=== PATIENT | female | born 1970 | race Caucasian/White ===

== ENCOUNTER 2018-04-20 14:17 | Emergency (ER) | payer OTHER ==
[2018-04-20 14:21] VITALS: BP 138/84; PULSE 118; TEMP 98.8; BMI 24.3
--- NOTE | 2018-04-20 14:22 | PDOC ---
Rapid Medical Evaluation Time Seen by Provider: 04/20/18 14:19 Medical Evaluation: Allergies Allergy/AdvReac Type Severity Reaction Status Date / Time No Known Allergies Allergy Verified 03/02/16 18:22 04/20/18 14:19 I have performed a brief in-person evaluation of this patient. The patient presents with a chief complaint of: dry non productive cough x1 week. Pertinent physical exam findings: OP-erythematous without lesions or exudate. Lungs CTAB. I have ordered the following: tylenol The patient will proceed to the ED for further evaluation. Discharge Disposition - Diagnosis Cough - Referrals - Patient Instructions - Post Discharge Activity
[2018-04-20] MEDS ORDERED: ACETAMINOPHEN 500 MG TABLET (FP) PO ONE (14:23)
[2018-04-20] MEDS ORDERED: predniSONE 20 MG TABLET (UD) PO ONE (15:01)
[2018-04-20] MEDS ORDERED: predniSONE 20 MG TABLET (UD) ONE (15:03)
[2018-04-20] MEDS ORDERED: ALBUTEROL SO4 2.5/IPRATROPIUM 0.5 INH SOL 3 ML VIAL.NEB. NEB ONE (15:03)
[2018-04-20] MEDS: ALBUTEROL SO4 2.5/IPRATROPIUM 0.5 INH SOL 3 ML VIAL.NEB. NEB SCH ×2 (15:05→15:39)
--- NOTE | 2018-04-20 15:10 | PDOC ---
History of Present Illness - General Chief Complaint: Cold Symptoms Stated Complaint: COUGH Time Seen by Provider: 04/20/18 14:19 History Source: Patient Exam Limitations: No Limitations - History of Present Illness Initial Comments: 04/20/18 15:06 Patient came for evaluation of worsening cough, pleuritic chest pain, and no relief with any [id number] medications. Denies fever, denies phlegm production, states has some mild sore throat pain him coughing so much. Timing/Duration: reports: getting worse, week Severity: reports: moderate Modifying Factors: improves with: coughing Associated Symptoms: reports: chest pain/soreness, cough, fever/chills, nasal congestion, nasal drainage, sore throat Past History - Travel Traveled outside of the country in the last 30 days: No Close contact w/someone who was outside of country & ill: No - Past Medical History Allergies/Adverse Reactions: Allergies Allergy/AdvReac Type Severity Reaction Status Date / Time No Known Allergies Allergy Verified 04/20/18 14:21 Home Medications: Ambulatory Orders Ibuprofen [Motrin -] 600 mg PO TID #21 tablet 03/03/16 Acetaminophen [Tylenol] 325 mg PO ASDIR 04/20/18 Albuterol Sulfate Inhaler - [Ventolin HFA Inhaler -] 1 - 2 inh PO Q4H #1 inhaler 04/20/18 Azithromycin [Zithromax -] 250 mg PO UTDICT #6 tab 04/20/18 Fexofenadine HCl [Heather Allergy] 180 mg PO ASDIR 04/20/18 Guaifenesin [Mucinex -] 600 mg PO BID 04/20/18 Ibuprofen [Advil -] 200 mg PO QID 04/20/18 predniSONE [Deltasone -] 20 mg PO BID #8 tablet 04/20/18 Anemia: Yes Asthma: No Cancer: No Cardiac Disorders: No CVA: No COPD: No CHF: No Dementia: No Diabetes: No GI Disorders: No Disorders: No HTN: No Hypercholesterolemia: No Liver Disease: No Seizures: No Thyroid Disease: No - Surgical History Abdominal Surgery: No Appendectomy: No Cardiac Surgery: No Cholecystectomy: No Lung Surgery: No Neurologic Surgery: No Orthopedic Surgery: No - Suicide/Smoking/Psychosocial Hx Smoking History: Never smoked Have you smoked in the past 12 months: No Hx Alcohol Use: No Drug/Substance Use Hx: No Substance Use Type: None Hx Substance Use Treatment: No Review of Systems - Review of Systems Able to Perform ROS?: Yes Is the patient limited Vincentian proficient: Yes Constitutional: Yes: Symptoms Reported, See HPI, Chills, Loss of Appetite, Malaise. No: Fever HEENTM: Yes: Symptoms Reported, See HPI, Nose Congestion, Throat Pain Respiratory: Yes: Symptoms reported, See HPI, Cough, Wheezing (tightness) ABD/GI: No: Symptoms Reported : No: Symptoms Reported Integumentary: No: Symptoms Reported Neurological: Yes: Symptoms reported All Other Systems: Reviewed and Negative *Physical Exam - Vital Signs Last Vital Signs Temp Pulse Resp BP Pulse Ox 98.8 F 118 H 18 138/84 100 04/20/18 14:18 04/20/18 14:18 04/20/18 14:18 04/20/18 14:18 04/20/18 14:18 - Physical Exam General Appearance: Yes: Nourished, Appropriately Dressed, Apparent Distress, Mild Distress HEENT: positive: MODE, TMs Normal (and congested but zed), Pharynx Normal, Tonsillar Erythema, Nasal Congestion, Rhinorrhea. negative: Tonsillar Exudate Neck: positive: Lymphadenopathy (R), Lymphadenopathy (L). negative: Tender Respiratory/Chest: positive: Decreased Breath Sounds, Wheezing. negative: Lungs Clear, Normal Breath Sounds, Respiratory Distress Gastrointestinal/Abdominal: positive: Normal Bowel Sounds, Soft. negative: Tender Extremity: positive: Normal Inspection. 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 intact, Fully Oriented, Alert, Normal Mood/ Affect, Normal Response, Motor Strength 5/5 Moderate Sedation - Procedure Monitoring Vital Signs: Procedure Monitoring Vital Signs Temperature 98.8 F 04/20/18 14:18 Pulse Rate 118 H 04/20/18 14:18 Respiratory Rate 18 04/20/18 14:18 Blood Pressure 138/84 04/20/18 14:18 O2 Sat by Pulse Oximetry (%) 100 04/20/18 14:18 ED Treatment Course - Medications Given in the ED: ED Medications Discontinued Medications Generic Name Dose Route Start Last Admin Trade Name Freq PRN Reason Stop Dose Admin Acetaminophen 975 mg 04/20/18 14:23 04/20/18 14:23 Tylenol - PO 04/20/18 14:24 975 mg ONCE ONE Administration Prednisone 60 mg 04/20/18 15:01 04/20/18 15:05 Deltasone - PO 04/20/18 15:02 60 mg ONCE ONE Administration Progress Note - Progress Note Progress Note: upper respiratory infection, much improved with DuoNebs and Prednisone. WIll prescribe Zithromax to cover bacterial illness. *DC/Admit/Observation/Transfer Diagnosis at time of Disposition: Bronchitis - Discharge Dispostion Disposition: HOME Condition at time of disposition: Stable Decision to Admit order: No - Prescriptions Prescriptions: Albuterol Sulfate Inhaler - [Ventolin HFA Inhaler -] 1 - 2 inh PO Q4H #1 inhaler Azithromycin [Zithromax -] 250 mg PO UTDICT #6 tab predniSONE [Deltasone -] 20 mg PO BID #8 tablet - Referrals Referrals: Gil Maddox MD [Primary Care Provider] - - Patient Instructions Printed Discharge Instructions: DI for Acute Bronchitis Additional Instructions: Rest, drink lots of fluids: Teas, water, soups, Pedialyte Saltwater gargles Steamy showers/seem to face break up mucus Avoid contact with others until fevers and cough resolved Lots of handwashing and good hygiene Continue [id number] medications for symptomatic relief Tylenol or Motrin for fever and pain Continue albuterol nebulizers every 4-6 hours for the next 2 days then as needed for continued cough Prednisone as directed until completed azithromycin as directed Followup with private physician in one to 2 days Return to emergency department / pediatric hospital for worsened symptoms, fevers, dehydration - Post Discharge Activity Forms/Work/School Notes: Back to Work
== END 2018-04-20 16:08 | disposition home or self-care (01) ==
LOC: JERFT 14:17
PROC: 3E0F7GC Introduction of Other Therapeutic Substance into Respiratory Tract, Via Natural or Artificial Opening (ICD-10-PCS; principal; 2018-04-20)
DX: R05 Cough (principal); J40 Bronchitis, not specified as acute or chronic
CPT/HCPCS: 94640; 99281-25

== ENCOUNTER 2020-04-18 22:35 | Emergency (ER) | payer OTHER ==
[2020-04-18 22:40] VITALS: TEMP 98.5; BMI 25.6
[2020-04-18] MEDS ORDERED: ACETAMINOPHEN 1000 MG/100 ML VIAL (NON FORMULARY) IVPB ONE (23:11)
[2020-04-18] MEDS ORDERED: METOCLOPRAMIDE HCL INJECTION 10 MG/2 ML VIAL IVPUSH ONE (23:11)
[2020-04-18] MEDS ORDERED: METOCLOPRAMIDE HCL INJECTION 10 MG/2 ML VIAL ONE (23:22)
[2020-04-18] MEDS ORDERED: ACETAMINOPHEN INJECTION 100 ML IVPB ONE (23:22)
[2020-04-18 23:26] LABS: BASO % 0.5 % (0-2.0); EOS % 0.9 % (0-4.5); HEMATOCRIT 42.3 % (32.4-45.2); HEMOGLOBIN 13.7 GM/dL (10.7-15.3); LYMPH % 17.8 % (8-40); MCH 28.1 pg (25.7-33.7); MCHC 32.4 g/dl (32.0-36.0); MEAN CELL VOLUME 86.8 fl (80-96); MEAN PLT VOLUME 9.5 fl (7.5-11.1); MONO % 6.7 % (3.8-10.2); NEUT % 74.1 % (42.8-82.8); PLATELET COUNT 329 K/MM3 (134-434); RBC 4.87 M/mm3 (3.60-5.2); RDW 14.3 % (11.6-15.6); WHITE BLOOD COUNT 13.3 K/mm3 (4.0-10.0)
[2020-04-18 23:43] LABS: POTASSIUM 4.1 mmol/L (3.5-5.1)
[2020-04-18 23:44] LABS: CALCIUM 9.8 mg/dL (8.5-10.1)
[2020-04-18 23:45] LABS: ALBUMIN 4.1 g/dl (3.4-5.0); BLOOD UREA NITROGEN 9.6 mg/dL (7-18)
[2020-04-18 23:48] LABS: CREATININE 0.7 mg/dL (0.55-1.3)
[2020-04-18] MEDS ORDERED: MECLIZINE HCL 25 MG TABLET (FP) PO ONE (23:48)
[2020-04-18 23:49] LABS: BILIRUBIN,TOTAL 0.5 mg/dL (0.2-1)
[2020-04-18] MEDS ORDERED: MECLIZINE HCL 25 MG TABLET (FP) ONE (23:53)
[2020-04-19 01:14] VITALS: BP 111/69; PULSE 82
== END 2020-04-19 01:15 | disposition home or self-care (01) ==
LOC: JER 22:35
PROC: 3E033NZ Introduction of Analgesics, Hypnotics, Sedatives into Peripheral Vein, Percutaneous Approach (ICD-10-PCS; principal; 2020-04-18)
PROC: 3E033GC Introduction of Other Therapeutic Substance into Peripheral Vein, Percutaneous Approach (ICD-10-PCS; 2020-04-18)
DX: R42 Dizziness and giddiness (principal); H61.21 Impacted cerumen, right ear
CPT/HCPCS: 36415; 80053; 85025; 93005; 93010; 99285-25; J0131

== ENCOUNTER 2020-12-29 11:41 | Emergency (ER) | payer OTHER ==
[2020-12-29 11:48] VITALS: BP 119/77; PULSE 99; TEMP 98.1; BMI 24.8
[2020-12-29] MEDS ORDERED: ACETAMINOPHEN/CAFFEINE/BUTALBITAL 1 TAB PO ONE (12:41)
[2020-12-29] MEDS ORDERED: PSEUDOEPHEDRINE HCL 30 MG TABLET PO ONE (12:41)
[2020-12-29] MEDS ORDERED: ACETAMINOPHEN/CAFFEINE/BUTALBITAL 1 TAB ONE (12:42)
[2020-12-29] MEDS ORDERED: PSEUDOEPHEDRINE HCL 60 MG TABLET ONE (12:43)
== END 2020-12-29 14:19 | disposition home or self-care (01) ==
LOC: JER 11:41
DX: J01.90 Acute sinusitis, unspecified (principal)
CPT/HCPCS: 99284-25; C9803; U0003; U0005